=== PATIENT | female | born 1975 | race Caucasian/White ===

== ENCOUNTER 2017-03-28 14:59 | Inpatient (IN) | payer OTHER ==
[~2017-03-28] VITALS: Ht 167.6 cm; Wt 100.2 kg
[~2017-03-28 14:59] MED LIST: CIPRO500 M1 PO; HARD NAILS2500 MCG PO; INDOCIN25 MG PO
[2017-03-28 15:41] LABS: EOSINOPHIL (%) 0.5 % (0-5); EOSINOPHIL COUNT 0.1 K/uL (0-0.3); IMMATURE GRANULOCYTE (%) 0.3 % (0.0-0.7); INSTRUMENT ABS NEUTROPHIL CT 5.9 K/uL; LYMPHOCYTE COUNT 2.7 K/uL (1.0-2.8); MCH 28.9 PG (29.0-34.0); MCHC 32.9 G/DL (30.0-36.0); MCV 87.8 FL (83-99); MEAN PLAT.VOLUME 12.2 uM^3 (9.5-12.4); MONOCYTE (%) 6.3 % (3-12); MONOCYTE COUNT 0.6 K/uL (0-0.8); NEUTROPHIL (%) 63.6 % (45-76); NEUTROPHIL COUNT 5.9 K/uL (1.8-6.4); PLATELET COUNT 210 K/uL (156-360); RBC DIS.WIDTH-CV 12.6 % (11.8-14.6); RBC DIS.WIDTH-SD 39.9 % (39-53); RED BLOOD COUNT 4.33 M/uL (3.80-5.20); WHITE BLOOD COUNT 9.3 K/uL (4.1-10.2)
[2017-03-28 15:51] LABS: CHLORIDE 105 mEq/L (99-109); POTASSIUM 3.4 mEq/L (3.7-5.4)
[2017-03-28 15:52] LABS: SODIUM 139 mEq/L (136-147)
[2017-03-28 15:53] LABS: GLUCOSE 92 mg/dL (70-99)
[2017-03-28 15:55] LABS: ANION GAP 9 MEQ/L (2-14)
[2017-03-28 15:56] LABS: SERUM ETHYL ALCOHOL < 10 mg/dL
[2017-03-28 15:57] LABS: GFR ESTIMATE (CALCULATED) > 59 mL/min/
[2017-03-28 15:59] LABS: UREA NITROGEN (BUN) 13 mg/dL (9-23)
[2017-03-28 16:00] LABS: SALICYLATE < 5.0 MG/DL (15-30)
[2017-03-28 16:03] LABS: INTERNAL CONTROL VALID? YES
[2017-03-28 16:13] LABS: AMPHETAMINE NEGATIVE (500 ng/mL); BARBITURATES NEGATIVE (200 ng/mL); BENZODIAZEPINES NEGATIVE (150 ng/mL); COCAINE NEGATIVE (150 ng/mL); INTERNAL CONTROLS VALID? YES; METHADONE PRESUMPTIVE POSITIVE (200 ng/mL); METHAMPHETAMINE NEGATIVE (500 ng/mL); OPIATES (MORPHINE) NEGATIVE (100 ng/mL); OXYCODONE NEGATIVE (100 ng/mL); PHENCYCLIDINE NEGATIVE (25 ng/mL); PROPOXYPHENE NEGATIVE (300 ng/mL); THC CANNABINOIDS NEGATIVE (50 ng/mL); TRICYCLIC ANTIDEPRESSANTS NEGATIVE (300 ng/mL)
[2017-03-29 01:05] VITALS: BP 132/87
[2017-03-29] MEDS ORDERED: METHYLPREDNISOLO4 MG PO (03:05)
[2017-03-29] MEDS ORDERED: TRAZODONE HCL50 MG PO (03:08)
[2017-03-29] MEDS ORDERED: TRAMADOL HCL50 MG PO (03:08)
[2017-03-29] MEDS ORDERED: PROZAC20 MG PO (03:09)
[2017-03-29 09:30] VITALS: BP 110/64
[2017-03-29 15:30] VITALS: BP 120/56
[2017-03-30 07:33] VITALS: BP 111/68
[2017-03-30] MEDS ORDERED: CYMBALTA60 MG PO (10:09)
== END 2017-03-30 13:23 | disposition home or self-care (01) | DRG 881 ==
LOC: EME 14:59 → EDOF 22:19 → 1WEST 22:19
PROVIDERS: Emergency Medicine
DX: F43.21 Adjustment disorder with depressed mood (principal); F41.1 Generalized anxiety disorder; T42.6X2A Poisoning by other antiepileptic and sedative-hypnotic drugs, intentional self-harm, initial encounter; M72.2 Plantar fascial fibromatosis; F17.200 Nicotine dependence, unspecified, uncomplicated
CPT/HCPCS: 80048; 84703; 85025; 90837; 93005; 97150 GO; 97165 GO; 99281; 99285; G0480; J7509

== ENCOUNTER 2017-10-21 23:38 | Emergency (ER) | payer OTHER ==
[~2017-10-21] VITALS: Ht 165.1 cm; Wt 107.7 kg
[~2017-10-21 23:38] MED LIST changes: +CYMBALTA60 MG PO; +METHYLPREDNISOLO4 MG PO; +PROZAC20 MG PO; +TRAMADOL HCL50 MG PO; +TRAZODONE HCL50 MG PO
[2017-10-22] MEDS ORDERED: VOLTAREN-XR100 MG PO (00:53)
[2017-10-22 01:16] VITALS: BP 132/77
== END 2017-10-22 01:16 | disposition home or self-care (01) ==
LOC: EME 23:38
DX: M72.2 Plantar fascial fibromatosis (principal); Z76.0 Encounter for issue of repeat prescription; F17.200 Nicotine dependence, unspecified, uncomplicated
CPT/HCPCS: 99281; 99283

== ENCOUNTER 2017-10-31 23:36 | Emergency (ER) | payer OTHER ==
[~2017-10-31] VITALS: Ht 165.1 cm; Wt 108.5 kg
[~2017-10-31 23:36] MED LIST changes: +VOLTAREN-XR100 MG PO
[2017-11-01 00:55] LABS: APPEARANCE SL.HAZY ((CLEAR)); BILIRUBIN NEGATIVE; BLOOD LARGE; COLOR YELLOW ((YELLOW)); GLUCOSE (STRIP) NEGATIVE; KETONES NEGATIVE; LEUKOCYTES NEGATIVE; NITRITE NEGATIVE; PROTEIN (STRIP) NEGATIVE; SPECIFIC GRAVITY 1.024 (1.000-1.030); UROBILINOGEN 0.2 MG/DL (0.2-1.0)
[2017-11-01 01:12] LABS: BACTERIA RARE /HPF; EPITHELIAL CELLS 1+ /HPF; MUCUS TRACE /LPF; UCUL ADDED? NO; WHITE BLOOD CELLS 0-5 /HPF (0-5)
[2017-11-01 01:12] LABS: HEMATOCRIT 33.3 % (36.0-46.0); MCH 29.6 PG (29.0-34.0); MCV 89.5 FL (83-99); PLATELET COUNT 176 K/uL (156-360); RBC DIS.WIDTH-CV 12.8 % (11.8-14.6); RBC DIS.WIDTH-SD 42.2 % (39-53); RED BLOOD COUNT 3.72 M/uL (3.80-5.20); WHITE BLOOD COUNT 4.6 K/uL (4.1-10.2)
[2017-11-01 01:40] LABS: QUANTITATIVE HCG < 4.0 MIU/ML
[2017-11-01] MEDS ORDERED: KEFLEX500 MG PO (01:55)
[2017-11-01 02:16] LABS: ALBUMIN 3.8 g/dL (3.2-4.8); CHLORIDE 105 mEq/L (99-109); POTASSIUM 3.7 mEq/L (3.7-5.4); SODIUM 140 mEq/L (136-147)
[2017-11-01 02:18] LABS: GLUCOSE 91 mg/dL (70-99)
[2017-11-01 02:19] LABS: TOTAL PROTEIN 6.3 g/dL (6.4-8.3)
[2017-11-01 02:20] LABS: TOTAL BILIRUBIN 0.2 mg/dL (0.0-1.0)
[2017-11-01 02:22] LABS: ALKALINE PHOSPHATASE 102 IU/L (3-129); CREATININE 0.7 mg/dL (0.6-1.3); GFR ESTIMATE (CALCULATED) > 59 mL/min/
[2017-11-01 02:23] LABS: UREA NITROGEN (BUN) 16 mg/dL (9-23)
[2017-11-01 02:24] LABS: AST (GOT) 24 IU/L (2-34)
[2017-11-01 02:25] LABS: ALT (GPT) 22 IU/L (3-49)
[2017-11-01 02:32] VITALS: BP 126/73
== END 2017-11-01 02:33 | disposition home or self-care (01) ==
LOC: EME 23:36
PROVIDERS: Physician Assistant
DX: R10.30 Lower abdominal pain, unspecified (principal); R31.9 Hematuria, unspecified; Z87.440 Personal history of urinary (tract) infections; F17.200 Nicotine dependence, unspecified, uncomplicated
CPT/HCPCS: 74176; 80053; 81003; 84702; 85027; 99281; 99284

== ENCOUNTER 2018-02-09 05:31 | Day surgery (SDC) | payer OTHER ==
[~2018-02-09] VITALS: Ht 165.1 cm; Wt 115.9 kg
[~2018-02-09 05:31] MED LIST changes: +ASCORBIC ACID500 M3 PO; +BENTYL20 MG PO; +CENTRUM SILVER1 EAC3 PO; +KEFLEX500 MG PO; +LAMICTAL200 MG PO; +LAMICTAL25 MG PO; +MOBIC15 MG PO; +PROTONIX20 MG PO; +PROZAC40 MG PO; +VENTOLIN HFA18 GM IH
[2018-02-09 06:15] VITALS: BP 129/73
[2018-02-09 12:25] VITALS: BP 131/82
[2018-02-09 15:31] VITALS: BP 127/75
[2018-02-09 19:15] VITALS: BP 124/69
[2018-02-09 20:00] VITALS: BP 110/77
[2018-02-09 23:00] VITALS: BP 115/68
[2018-02-10 03:20] VITALS: BP 140/85
[2018-02-10 06:58] LABS: HEMATOCRIT 34.8 % (36.0-46.0); HEMOGLOBIN 11.5 G/DL (11.9-15.5); MCH 29.6 PG (29.0-34.0); MCV 89.7 FL (83-99); PLATELET COUNT 178 K/uL (156-360); RBC DIS.WIDTH-CV 12.9 % (11.8-14.6); RBC DIS.WIDTH-SD 41.9 % (39-53); RED BLOOD COUNT 3.88 M/uL (3.80-5.20)
[2018-02-10 08:05] VITALS: BP 147/84
[2018-02-10] MEDS ORDERED: HYDROCODON-ACE1 EAC7 PO (08:20)
[2018-02-10] MEDS ORDERED: MOTRIN800 MG PO (08:20)
== END 2018-02-10 09:45 | disposition home or self-care (01) ==
LOC: SDC 05:31 → 2SOUTH 11:25 → 2EAST 11:25 → 2SOUTH 11:25 → ENRESERV 11:26 → 2EAST 12:16 → SDC 12:45 → 2EAST 02-10 09:45
PROVIDERS: Obstetrics & Gynecology
DX: N80.0 Endometriosis of uterus (principal); D25.9 Leiomyoma of uterus, unspecified; E66.9 Obesity, unspecified; Z68.41 Body mass index [BMI] 40.0-44.9, adult; Z87.891 Personal history of nicotine dependence; F41.9 Anxiety disorder, unspecified
CPT/HCPCS: 85027; 88302; 88307; G0378; J0131; J0690; J1100; J1885; J2001; J2405; J2795; J3010; J3475; J7120; Q0175